=== PATIENT | male | born 1975 | race Caucasian/White ===

== ENCOUNTER 2017-10-24 23:31 | Emergency (ER) | payer OTHER ==
[~2017-10-24] VITALS: Ht 188 cm; Wt 100.0 kg
[2017-10-25 05:24] VITALS: BP 123/76
== END 2017-10-25 05:35 | disposition home or self-care (01) ==
LOC: EDBD 23:34 → EMS 23:34
DX: F10.229 Alcohol dependence with intoxication, unspecified (principal); Y90.8 Blood alcohol level of 240 mg/100 ml or more
CPT/HCPCS: 36415; 99283; G0480